=== PATIENT | male | born 1980 | race Caucasian/White ===

== ENCOUNTER 2022-11-20 12:34 | Emergency (ER) | payer OTHER ==
[2022-11-20 13:01] VITALS: RESP 18; TEMP 97.8
[2022-11-20] MEDS ORDERED: ALPRAZolam 1 MG TAB PO STA (13:56)
--- NOTE | 2022-11-20 13:57 | ED ---
General Adult HPI - General Chief complaint: ENT Stated complaint: MED Refill Time Seen by Provider: 11/20/22 13:10 Source: patient, RN notes reviewed Mode of arrival: ambulatory Limitations: no limitations - History of Present Illness Initial comments: Patient is a pleasant 41-year-old male presenting to the emergency department with concerns with need for medication refill. Patient is recently in the process of getting a new doctor however his appointment is not for 2 weeks. Patient does have anxiety. Patient does request medication refill of Xanax and Lexapro and buspirone. Patient states in addition he has occasional mild pressure in his sinuses and fullness in the ears over the past several weeks. Patient has been taking Claritin with relief. Patient states some days he gets a since of days he does not. No dyspnea. NO Fever. - Related Data Previous Rx's Medication Instructions Recorded Escitalopram [Lexapro] 10 mg PO DAILY #14 tablet 11/20/22 busPIRone HCL 5 mg PO BID #28 tab 11/20/22 Allergies Allergy/AdvReac Type Severity Reaction Status Date / Time No Known Allergies Allergy Verified 11/20/22 13:01 Review of Systems ROS Statement: Those systems with pertinent positive or pertinent negative responses have been documented in the HPI. ROS Other: All systems not noted in ROS Statement are negative. Constitutional: Denies: fever Eyes: Denies: eye pain ENT: Reports: as per HPI Respiratory: Denies: cough, dyspnea Cardiovascular: Denies: chest pain Endocrine: Denies: fatigue Gastrointestinal: Denies: abdominal pain Genitourinary: Denies: dysuria Past Medical History Past Medical History: No Reported History History of Any Multi-Drug Resistant Organisms: None Reported Past Surgical History: No Surgical Hx Reported Past Psychological History: Anxiety, Depression Smoking Status: Former smoker Past Alcohol Use History: None Reported Past Drug Use History: None Reported General Exam Limitations: no limitations General appearance: alert, in no apparent distress Head exam: Present: atraumatic Eye exam: Present: normal appearance, PERRL, EOMI ENT exam: Present: normal oropharynx, TM's normal bilaterally Neck exam: Present: normal inspection. Absent: tenderness Respiratory exam: Present: normal lung sounds bilaterally Cardiovascular Exam: Present: regular rate, normal rhythm GI/Abdominal exam: Present: soft. Absent: tenderness Extremities exam: Present: normal inspection Neurological exam: Present: alert Psychiatric exam: Present: normal affect, normal mood Skin exam: Present: normal color Course Vital Signs 11/20/22 12:54 Temperature 97.8 F Pulse Rate 73 Respiratory 18 Rate Blood Pressure 125/82 O2 Sat by Pulse 99 Oximetry Medical Decision Making - Medical Decision Making Was pt. sent in by a medical professional or institution ([facility], [facility], urgent care, hospital, or senior care...) When possible be specific @ -No Did you speak to anyone other than the patient for history (EMS, parent, family, police, friend...)? What history was obtained from this source @ -No Did you review nursing and triage notes (agree or disagree)? Why? @ -I reviewed and agree with nursing and triage notes Were old charts reviewed (outside hosp., previous admission, EMS record, old EKG, old radiological studies, urgent care reports/EKG's, senior care records)? Report findings @ -No old charts were reviewed Differential Diagnosis (chest pain, altered mental status, abdominal pain women, abdominal pain men, vaginal bleeding, weakness, fever, dyspnea, syncope, headache, dizziness, GI bleed, back pain, seizure, CVA, palpatations, mental health)? @ -not applicable EKG interpreted by me (3pts min.). @ -As above X-rays interpreted by me (1pt min.). @ -None done CT interpreted by me (1pt min.). @ -None done U/S interpreted by me (1pt. min.). @ -None done What testing was considered but not performed or refused? (CT, X-rays, U/S, labs)? Why? @ -None What meds were considered but not given or refused? Why? @ -None Did you discuss the management of the patient with other professionals (professionals i.e. [facility], [facility], lab, RT, psych nurse, socially responsible investment adviser, manager flight, teacher, radio electronics officer, case assembler)? Give summary @ -No Was smoking cessation discussed for >3mins.? @ -No Was critical care preformed (if so, how long)? @ -No Were there social determinants of health that impacted care today? How? (Homelessness, low income, unemployed, alcoholism, drug addiction, transportation, low edu. Level, literacy, decrease access to med. care, senior living, rehab)? @ -No Was there de-escalation of care discussed even if they declined (Discuss DNR or withdrawal of care, Hospice)? DNR status @ -No What co-morbidities impacted this encounter? (DM, HTN, Smoking, COPD, CAD, Cancer, CVA, ARF, Chemo, Hep., AIDS, mental health diagnosis, sleep apnea, morbid obesity)? @ -None Was patient admitted / discharged? Hospital course, mention meds given and route, prescriptions, significant lab abnormalities, going to OR and other pertinent info. @ -Patient has symptoms consistent with ALLERGIES or early sinusitis. Patient should continue Claritin and advised [id number] Flonase. Patient will be provided for prescription for refill on medications however is advised on limitations with others Undiagnosed new problem with uncertain prognosis? @ -No Drug Therapy requiring intensive monitoring for toxicity (Heparin, Nitro, Insulin, Cardizem)? @ -No Were any procedures done? @ -No Diagnosis/symptom? @ -Medication refill, sinus congestion Acute, or Chronic, or Acute on Chronic? @ -Acute, acute Uncomplicated (without systemic symptoms) or Complicated (systemic symptoms)? @ -default Side effects of treatment? @ -No Exacerbation, Progression, or Severe Exacerbation? @ -No Poses a threat to life or bodily function? How? (Chest pain, [place], VT, pneumonia, PE, COPD, DKA, ARF, appy, cholecystitis, CVA, Diverticulitis, Homicidal, Suicidal, threat to staff... and all critical care pts) @ -No Disposition Clinical Impression: Sinus congestion, Medication refill Disposition: HOME SELF-CARE Condition: Stable Instructions (If sedation given, give patient instructions): Allergies (ED), Medicine Refill (ED) Additional Instructions: Please do follow-up with your primary care physician as scheduled, please call to try earlier appointment. Prescriptions and pharmacy. Xanax is 1 mg to take home and can be cut in half. Return for thoughts of self-harm, fever, increased pressure, worsening symptoms or other concerns. Prescriptions: busPIRone HCL 5 mg PO BID #28 tab Escitalopram [Lexapro] 10 mg PO DAILY #14 tablet Is patient prescribed a controlled substance at d/c from ED?: No Referrals: None,Stated [Primary Care Provider] - 1-2 days Forms: Area PCPs Time of Disposition: 13:56
[2022-11-20 14:34] VITALS: BP 138/83; PULSE 60
== END 2022-11-20 14:34 | disposition home or self-care (01) ==
LOC: EDBD → EC 12:34
DX: R09.81 Nasal congestion (principal); Z76.0 Encounter for issue of repeat prescription; F32.A Depression, unspecified; F41.9 Anxiety disorder, unspecified; Z79.899 Other long term (current) drug therapy; Z87.891 Personal history of nicotine dependence
CPT/HCPCS: 99282